=== PATIENT | female | born 1960 | race Caucasian/White ===

== ENCOUNTER → 2023-06-25 | Outpatient (CLI) | payer BC ==
--- NOTE | 2023-06-26 08:11 | MM ---
Reason for Exam: Screening (asymptomatic). Last mammogram was performed 25 year(s) and 5 month(s) ago. Patient History: Menarche at age 15. First Full-Term at age 34. Late child-bearing (after 30). Postmenopausal. Patient has history of breast feeding. Paternal aunt had breast cancer at or over age 50. Risk Values: Jena 5 year model risk: 1.9%. NCI Lifetime model risk: 8.6%. Prior Study Comparison: 02/07/1998 Bilateral Diagnostic Mammogram, [facility]. Tissue Density: The breast tissue is heterogeneously dense. This may lower the sensitivity of mammography. Findings: Analyzed By CAD. There is no suspicious group of microcalcifications in either breast. No suspicious masses in the right breast. There is a focal asymmetry demonstrated within the lower inner left breast at middle depth. Benign-appearing round calcifications within both breasts. Overall Assessment: Incomplete: need additional imaging evaluation, BI-RAD 0 Management: Diagnostic Mammogram of the left breast. A clinical breast exam by your physician is recommended on an annual basis and results should be correlated with mammographic findings. [facility] will attempt to contact patient to return for supplemental views and ultrasound if indicated. Note on Jena scores and lifetime risk: 1. A Jena score greater than 3% is considered moderate risk. If this is the case, consider specialist referral to assess eligibility for a risk reducing agent. If overall lifetime risk for the development of breast cancer is 20% or higher, the patient may qualify for future screening with alternating mammogram and breast MRI. Electronically signed and approved by: Lemuel Van D.O.
== END | disposition home or self-care (01) ==
LOC: RADMAMWWP 09:37
PROVIDERS: ATTEND Family Medicine
DX: Z12.31 Encounter for screening mammogram for malignant neoplasm of breast (principal); Z78.0 Asymptomatic menopausal state; Z80.3 Family history of malignant neoplasm of breast
CPT/HCPCS: 77063; 77067

== ENCOUNTER → 2023-06-30 | Outpatient (CLI) | payer BC ==
--- NOTE | 2023-06-30 07:41 | MM ---
Reason for Exam: Additional evaluation requested from abnormal screening. Last screening mammogram was performed less than 1 month ago. Patient History: Menarche at age 15. First Full-Term at age 34. Late child-bearing (after 30). Postmenopausal. Patient has history of breast feeding. Paternal aunt had breast cancer at or over age 50. Risk Values: Jena 5 year model risk: 1.9%. NCI Lifetime model risk: 8.6%. Prior Study Comparison: 02/07/1998 Bilateral Diagnostic Mammogram, [facility]. 06/25/2023 Bilateral MG 3D screening mammo w/cad, [facility]. Tissue Density: Left: The breast tissue is heterogeneously dense. This may lower the sensitivity of mammography. Findings: Analyzed By CAD. Left breast asymmetry 4.8 cm from nipple measuring 9 mm slightly inferiorly remains. Overall Assessment: Incomplete: need additional imaging evaluation, BI-RAD 0 Management: Diagnostic Breast Ultrasound of the left breast. Results were given to the patient verbally at the time of exam. Patient should continue monthly self-breast exams. A clinical breast exam by your physician is recommended on an annual basis. This exam should not preclude additional follow-up of suspicious palpable abnormalities. Note on Jena scores and lifetime risk: 1. A Jena score greater than 3% is considered moderate risk. If this is the case, consider specialist referral to assess eligibility for a risk reducing agent. 2. If overall lifetime risk for the development of breast cancer is 20% or higher, the patient may qualify for future screening with alternating mammogram and breast MRI. Electronically signed and approved by: Naveen Pavon DO
--- NOTE | 2023-06-30 08:07 | USB ---
Reason for Exam: Additional evaluation requested from abnormal screening. Patient History: Menarche at age 15. First Full-Term at age 34. Late child-bearing (after 30). Postmenopausal. Patient has history of breast feeding. Paternal aunt had breast cancer at or over age 50. Risk Values: Jena 5 year model risk: 1.9%. NCI Lifetime model risk: 8.6%. Technique: Method: Targeted. Prior Study Comparison: 02/07/1998 Bilateral Diagnostic Mammogram, [facility]. 06/25/2023 Bilateral MG 3D screening mammo w/cad, [facility]. Findings: The lower section of the breast of the left breast, the axilla of the left breast and the retroareolar of the left breast were scanned. Imaged: Ultrasound imaging of: Area of concern, retroareolar region and axilla. Hypoechoic lesion at 6:00 5 cm in the nipple measuring up to 5 x 6 x 4 mm. Anechoic cyst at 5:00 5 cm nipple measuring up to 8 x 2 x 6 mm. Overall Assessment: Suspicious, BI-RAD 4 Management: Ultrasound Core Biopsy of the left breast. A clinical breast exam by your physician is recommended on an annual basis and results should be correlated with mammographic findings. This exam should not preclude additional follow-up of suspicious palpable abnormalities. Results were given to the patient verbally at the time of exam. Electronically signed and approved by: Naveen Pavon DO
== END | disposition home or self-care (01) ==
LOC: RADMAMWWP 07:01
PROVIDERS: ATTEND Family Medicine
DX: R92.8 Other abnormal and inconclusive findings on diagnostic imaging of breast (principal); Z78.0 Asymptomatic menopausal state; Z80.3 Family history of malignant neoplasm of breast
CPT/HCPCS: 77061; 77065

== ENCOUNTER → 2023-07-08 | Day surgery (SDC) | payer BC ==
--- NOTE | 2023-07-11 14:06 | MM ---
Reason for Exam: Post Procedure Mammogram. Last screening mammogram was performed less than 1 month ago. Patient History: Menarche at age 15. First Full-Term at age 34. Late child-bearing (after 30). Postmenopausal. Patient has history of breast feeding. Paternal aunt had breast cancer at or over age 50. Risk Values: Jena 5 year model risk: 1.9%. NCI Lifetime model risk: 8.6%. Prior Study Comparison: 02/07/1998 Bilateral Diagnostic Mammogram, [facility]. 06/25/2023 Bilateral MG 3D screening mammo w/cad, [facility]. 06/30/2023 Left MG 3D work up w/cad LT, [facility]. Tissue Density: Left: The breast tissue is heterogeneously dense. This may lower the sensitivity of mammography. Pathology Description: Location: 6 o'clock. Marker Left Behind. Needle Type: [employer] Cores: 1 Gauge: 12 The procedure of ultrasound guided core biopsy was explained to the patient. Benefits, alternatives, and risks were discussed. An informed consent was then obtained. The patient was placed in supine positioning for imaging and for the procedure. The overlying skin was prepped and draped in usual sterile fashion. Lidocaine buffered with bicarbonate was used as anesthetic into the skin and subcutaneous tissue up to area of concern in the left 6:00 breast. Under ultrasound guidance, a 12-gauge vacuum assisted biopsy gun device was used to obtain one core samples. The lesion could no longer be visualized. Following this, a biopsy clip was left in lesion. The patient tolerated the procedure well without any immediate complication. The patient was kept in the radiology department for short stay after the procedure and then discharged home in stable condition. Postprocedure mammogram: The patient was transferred to mammography for physician ordered post procedure mammogram for clip placement verification. Impression: Successful, uncomplicated ultrasound guided core biopsy of area of concern in the left breast 6:00 , full pathology results to follow. Pathology Results: Result: Benign, Fibrocystic change. LEFT BREAST, 6:00 POSITION, ULTRASOUND GUIDED CORE BIOPSY: Fibrocystic change with fragmented benign ductal cyst, focal fibrosis, columnar cell change/hyperplasia, and usual ductal hyperplasia. Current specimen negative for diagnostic in situ or invasive carcinoma. Overall Assessment: Benign Assessment: MG diagnostic mammo LT wo CAD. - Left: Benign, BI-RAD 2. Management: Diagnostic Mammogram of the left breast in 6 months. Electronically signed and approved by: Carmine Marina M.D. Radiologis
== END ==
LOC: RADUSWWP 12:46
PROVIDERS: ATTEND Family Medicine
DX: N60.12 Diffuse cystic mastopathy of left breast (principal); Z80.3 Family history of malignant neoplasm of breast
CPT/HCPCS: 88305; 77065; 19083; A4648

== ENCOUNTER → 2024-07-26 | Outpatient (CLI) | payer BC ==
--- NOTE | 2024-07-27 17:23 | MM ---
Reason for Exam: Screening (asymptomatic). Last mammogram was performed 1 year(s) and 1 month(s) ago. Patient History: Menarche at age 15. First Full-Term at age 34. Late child-bearing (after 30). Postmenopausal. Patient has history of breast feeding. 07/08/2023, Benign US biopsy breast VAD LT on the left side. Paternal aunt had breast cancer at or over age 50. Risk Values: Jena 5 year model risk: 2.3%. NCI Lifetime model risk: 9.8%. Prior Study Comparison: 06/25/2023 Bilateral MG 3D screening mammo w/cad, [facility]. 06/30/2023 Left MG 3D work up w/cad LT, [facility]. 07/08/2023 Left MG diagnostic mammo LT wo CAD., [facility]. Tissue Density: The breasts are heterogeneously dense, which may obscure small masses. Findings: Analyzed By CAD. Isodense nodularity central inner aspect of the right breast on the CC view middle depth is more defined. It incompletely disperses on 3-D images. This may represent superimposition shadow but further evaluation is recommended. Unchanged asymmetric density and nodularity 12:00 left breast. Microclip left breast from prior biopsy. Overall Assessment: Incomplete: need additional imaging evaluation, BI-RAD 0 Management: Special View Mammogram of the right breast. Diagnostic Breast Ultrasound of the right breast. Additional views to include spot 3-D CC, 3-D CC rolled, and 3-D LM views. Targeted right breast ultrasound if any persisting abnormality. [facility] will attempt to contact patient to return for supplemental views and ultrasound if indicated. Electronically signed and approved by: Jose Valentin M.D. Radiologist
== END | disposition home or self-care (01) ==
LOC: RADMAMWWP 14:41
PROVIDERS: ATTEND Family Medicine
DX: Z12.31 Encounter for screening mammogram for malignant neoplasm of breast
CPT/HCPCS: 77063; 77067

== ENCOUNTER → 2024-08-05 | Outpatient (CLI) | payer BC ==
--- NOTE | 2024-08-05 14:28 | MM ---
Reason for Exam: Additional evaluation requested from abnormal screening. Last screening mammogram was performed less than 1 month ago. Patient History: Menarche at age 15. First Full-Term at age 34. Late child-bearing (after 30). Postmenopausal. Patient has history of breast feeding. 07/08/2023, Benign US biopsy breast VAD LT on the left side. Paternal aunt had breast cancer at or over age 50. Risk Values: Jena 5 year model risk: 2.3%. NCI Lifetime model risk: 9.8%. Prior Study Comparison: 02/07/1998 Bilateral Diagnostic Mammogram, [facility]. 06/25/2023 Bilateral MG 3D screening mammo w/cad, [facility]. 06/30/2023 Left MG 3D work up w/cad LT, [facility]. 07/08/2023 Left MG diagnostic mammo LT wo CAD., [facility]. 07/26/2024 Bilateral MG 3D screening mammo w/cad, [facility]. Tissue Density: Right: The breasts are heterogeneously dense, which may obscure small masses. Findings: Analyzed By CAD. Pattern is stable. Impression no persistent nodularity is in the right breast. Mediolateral view appears unremarkable. No suspicious groups of microcalcifications, spiculated or lobular masses, architectural distortion or other secondary signs of malignancy are mammographically apparent. Overall Assessment: Benign, BI-RAD 2 Management: Screening Mammogram of both breasts in 1 year. A negative mammogram report should not preclude additional follow up of suspicious palpable abnormalities. Patient should continue monthly self breast exam. A clinical breast exam by your physician is recommended on an annual basis and results should be correlated with mammographic findings. Note on Jena scores and lifetime risk: 1. A Jena score greater than 3% is considered moderate risk. If this is the case, consider specialist referral to assess eligibility for a risk reducing agent. 2. If overall lifetime risk for the development of breast cancer is 20% or higher, the patient may qualify for future screening with alternating mammogram and breast MRI. [facility], , 08/05/2024 10:58 AM. Electronically signed and approved by: Silvio Rousseau D.O. Radiologis
== END | disposition home or self-care (01) ==
LOC: RADMAMWWP 10:17
PROVIDERS: ATTEND Family Medicine
CPT/HCPCS: 77061; 77065